=== PATIENT | male | born 1980 | race Two or more races ===

== ENCOUNTER 2020-03-07 06:29 | Emergency (ER) | payer OTHER ==
[~2020-03-07] VITALS: Ht 193 cm; Wt 122.5 kg
--- NOTE | 2020-03-07 06:34 | NUR ---
PATIENT CAME TO THE ER BED 18 BIBRA FROM HOME C/O WITNESSED SEIZURE EPISODE BY FAMILY MEMBER. PATIENT STATES THAT HIS CALLED [id number]. PATIENT HAD NOT TAKEN HIS VIMPAT, AND KEPPRA SINCE FRIDAY BECAUSE HE RAN OUT OF MEDICATIONS. PATIENT IS AAOX4 UPON ARRIVAL. PATIENT HAS A LEFT EYEBROW LACERATION. PATIENT IS BREATHING EVENLY AND UNLABORED ON ROOM AIR AT 100%. PATIENT IS CONNECTED TO THE INSPECTOR MISSILE. WILL CONTINUE SUPERVISE PATIENT CLOSELY.
--- NOTE | 2020-03-07 06:41 | NUR ---
BLOOD COLLECTED AND SENT TO THE LAB WITH THE [employer].
[2020-03-07 06:56] LABS: BASOPHILS # (AUTO) 0.1 /CMM (0.0-0.2); BASOPHILS % (AUTO) 0.9 % (0.0-2.0); EOSINOPHILS % (AUTO) 3.1 % (0.0-6.0); HEMATOCRIT 42 % (39-51); HEMOGLOBIN 14.4 g/dL (13.5-17.5); LYMPHOCYTES % (AUTO) 34.6 % (20.0-44.0); MEAN CORPUSCULAR HGB CONC 34 g/dl (31.0-36.0); MEAN CORPUSCULAR VOLUME 92 fL (80-96); MONOCYTES # (AUTO) 0.5 /CMM (0.1-1.30); MONOCYTES % (AUTO) 9.1 % (2.0-12.0); NEUTROPHILS % (AUTO) 52.3 % (43.0-81.0); PLATELET COUNT (AUTO) 210 /CMM (150-450); RED BLOOD CELL COUNT(AUTO) 4.57 MIL/uL (4.5-6.0); WHITE BLOOD COUNT (AUTO) 5.8 K/uL (4.3-11.0)
[2020-03-07] MEDS ORDERED: LORAZEPAM INJ 2 MG/ML VIAL IVP ONE (07:00)
[2020-03-07] MEDS ORDERED: LEVETIRACETAM (500MG) 500 MG in IV NS 0.9% 100 ML IV ONE (07:00)
[2020-03-07 07:11] LABS: CALCIUM, SERUM 8.9 mg/dL (8.5-10.1); CREATININE 1.4 mg/dL (0.6-1.3); POTASSIUM 3.6 mmol/L (3.5-5.1)
[2020-03-07 07:27] LABS: BILIRUBIN,DIRECT 0.1 mg/dL (0.0-0.2); BILIRUBIN,TOTAL 0.3 mg/dL (0.2-1.0); TOTAL PROTEIN, SERUM 7.8 g/dL (6.4-8.2)
--- NOTE | 2020-03-07 07:30 | NUR ---
REPORT GIVEN TO HUNTER BENITES FOR DARLYN.
[2020-03-07 08:49] VITALS: BP 123/91
--- NOTE | 2020-03-07 08:49 | NUR ---
Patient discharged to home in stable condition. Written and verbal after care instructions given. Patient verbalizes understanding of instruction.
== END 2020-03-07 08:49 | disposition home or self-care (01) ==
LOC: ER 06:31
DX: G40.909 Epilepsy, unspecified, not intractable, without status epilepticus (principal)
CPT/HCPCS: 36415; 70450; 80048; 80076; 85025; 96365; 96375; 99284; J1953; J2060; J7030